=== PATIENT | female | born 1965 | race Two or more races ===

== ENCOUNTER → 2019-12-24 | Day surgery (SDC) | payer OTHER ==
[~2019-12-24] MED LIST: ACETAMINOPHEN 1000 MG/100 ML IV ONE; BUPIVACAINE 0.25% 30ML SDV INJ ONE; CEFAZOLIN SOD 1 GM/NS 50ML 100 ML IV ONE; DEXAMETHASONE SOD PHOS INJ 4 MG/ML VIAL ONE; FENTANYL CITRATE/PF 100MCG/2 ML INJ ONE; LIDOCAINE HCL 2% LOCAL INJ 5 ML SDV VIAL INJ ONE; MIDAZOLAM HCL 2 MG/2 ML VIAL ONE; OMEPRAZOLE20 M1 PO; ONDANSETRON HCL INJ 2MG/ML 2ML 2 MG/ML VIAL ONE; POTASSIUM CHLO10 ME1 PO; PROPOFOL IV EMULSION 10 MG/ML 20 ML VIAL ONE; ROCURONIUM BROMIDE 10 MG/ML 5ML VIAL IV ONE; SEVOFLURANE INHAL SOLN 250 ML PEN BTL ONE; SUGAMMADEX SODIUM 200 MG/2 ML VIAL IV ONE; SYNTHROID137 MCG PO
--- NOTE | 2019-12-24 08:44 | Operative Report ---
DATE OF PROCEDURE: 12/24/2019 SURGEON: Johan Hernandez MD PREOPERATIVE DIAGNOSIS: Acute and chronic cholecystitis. POSTOPERATIVE DIAGNOSIS: Acute and chronic cholecystitis. PREOPERATIVE INDICATION: Treat disease, prevent complications related to biliary disease. PROCEDURE: Laparoscopic cholecystectomy. ANESTHESIA: General. FAMILY SERVICES COORDINATOR: Louis Enriquez, surgical attendant (needed due to complexity of case). FLUIDS: As per Anesthesia. EBL: 10 mL. DRAINS: None. COMPLICATIONS: None. SPECIMENS: Gallbladder. GRAFTS: None. FINDINGS: Gallbladder wall thickening with pericholecystic inflammatory changes. PROCEDURE IN DETAIL: The patient was brought to the operating room and was intubated under general endotracheal anesthesia. She was sterilely prepped and draped in the usual fashion. A preprocedure pause was performed identifying the patient, use of perioperative antibiotics, intended procedure, and staff surgeon. Access was gained via a 5 mm left subcostal incision using a Veress needle. The abdomen was insufflated. Three additional trocars were placed in the standard positions. The gallbladder was grasped at the fundus and retracted cephalad and to the right of the liver. The gallbladder wall was quite thickened and there was an inflammatory fibrotic reaction around the entire gallbladder. I then dissected out the cystic duct and cystic artery and was able to obtain the critical view of dissection. The cystic duct was clipped twice on the stay side, once on the specimen side, and divided with scissors. The cystic artery was clipped once proximally, once distally, and divided with scissors. The gallbladder was then excised off the gallbladder fossa using the L-hook cautery. The gallbladder was then removed through the periumbilical port site with the EndoCatch bag. The large port site was closed with 0 Vicryl suture using the David-Juliana technique. We then verified hemostasis, desufflated the abdomen and removed the trocars. Incision sites were closed with 4-0 Monocryl suture in a subcuticular fashion. Dermabond dressings were applied, 0.25% bupivacaine was used both at the preperitoneal incision sites. The patient tolerated the procedure well. Type of wound was type 2, clean, contaminated. Johan Hernandez MD [facility] [place] /[id number]
[2019-12-24 09:16] VITALS: BP 120/74
== END | disposition home or self-care (01) ==
LOC: OR 05:35
PROVIDERS: ATTEND Surgery
DX: K80.12 Calculus of gallbladder with acute and chronic cholecystitis without obstruction (principal); K21.9 Gastro-esophageal reflux disease without esophagitis; E03.9 Hypothyroidism, unspecified
CPT/HCPCS: 47562; 88304; J0131; J0690; J1100; J2001; J2250; J2405; J2704; J3010